=== PATIENT | male | born 1940 | race Caucasian/White ===

== ENCOUNTER → 2017-02-28 | Outpatient (CLI) | payer MEDICARE, OTHER ==
[~2017-02-28] MED LIST: 0.9 % SODIUM CHLORIDE 10 ML VIAL ONE; IOHEXOL 300 MG/ML 50 ML VIAL. ONE; LIDOCAINE 1% PF 30 ML VIAL. ONE
== END | disposition home or self-care (01) ==
LOC: SURG 08:28
PROVIDERS: ATTEND Anesthesiology Pain Medicine
DX: M54.2 Cervicalgia (principal); M19.90 Unspecified osteoarthritis, unspecified site
CPT/HCPCS: 99214; J2001; Q9967

== ENCOUNTER → 2018-03-07 | Outpatient (CLI) | payer MEDICARE, OTHER ==
[2017-07-18 08:57] VITALS: BP 129/63
--- NOTE | 2018-03-07 12:06 | RAD ---
EXAM: Left shoulder, 3 views. HISTORY: Pain. COMPARISON: None. FINDINGS: 3 views of the left shoulder obtained. There is no fracture, dislocation or subluxation. There is calcification along the superior lateral humeral head at the rotator cuff insertion likely due to calcific tendinitis. There is acromioclavicular spurring. IMPRESSION: 1. No acute osseous finding. 2. Mild left acromioclavicular os arthritis. 3. Calcifications along the rotator cuff insertion suggesting calcific tendinitis. Electronically signed by: Olivia Montenegro MD (03/07/2018 12:02 PM) [place] [id number]
== END | disposition home or self-care (01) ==
LOC: RAD 10:08
PROVIDERS: ATTEND Orthopaedic Surgery Sports Medicine
DX: M19.012 Primary osteoarthritis, left shoulder (principal)
CPT/HCPCS: 73030

== ENCOUNTER 2019-07-31 11:17 | Emergency (ER) | payer MEDICARE, OTHER ==
[~2019-07-31] VITALS: Ht 172.7 cm; Wt 96.6 kg
--- NOTE | 2019-07-31 11:44 | PHYS DOC ---
Adult General Chief Complaint Chief Complaint: WEAKNESS/GENERALIZED HPI HPI Patient is a 79-year-old male who reports a history of taking metoprolol for a fast heart rate and he presents today secondary to dizziness. Patient states he was not feeling well last night with similar symptoms and then this morning approximately 1 hour prior to arrival he became extremely dizzy and had to lie on the floor. He denies chest pain or shortness of breath. Patient has not been sick recently otherwise. Review of Systems Review of Systems All other systems were reviewed and found to be within normal limits, except as documented in this note. Allergies Allergies Allergies Coded Allergies Type Severity Reaction Last Updated Verified ciprofloxacin Allergy Intermediate Unknown 07/17/17 Yes levofloxacin Allergy Intermediate Unknown 07/17/17 Yes morphine Allergy Intermediate Palpitations 07/17/17 Yes Physical Exam Physical Exam Constitutional: Well developed, well nourished, no acute distress, non-toxic appearance. [] HENT: Normocephalic, atraumatic, bilateral external ears normal, oropharynx moist, no oral exudates, nose normal. [] Eyes: PERRLA, EOMI, conjunctiva normal, no discharge. [] Neck: Normal range of motion, no tenderness, supple, no stridor. [] Cardiovascular: Regular rhythm, bradycardic Lungs & Thorax: Bilateral breath sounds clear to auscultation [] Abdomen: Bowel sounds normal, soft, no tenderness, no masses, no pulsatile masses. [] Skin: Warm, dry, no erythema, no rash. [] Back: No tenderness, no CVA tenderness. [] Extremities: No tenderness, no cyanosis, no clubbing, ROM intact, no edema. [] Neurologic: Alert and oriented X 3, normal motor function, normal sensory function, no focal deficits noted. [] Psychologic: Affect normal, judgement normal, mood normal. [] EKG EKG EKG shows a complete heart block with a ventricular rate of 38. [] Radiology/Procedures Radiology/Procedures [] Course & Med Decision Making Course & Med Decision Making Pertinent Labs and Imaging studies reviewed. (See chart for details) 1142: Patient's EKG was performed and showed third-degree heart block. Cardiology was consulted and they agreed the patient is in a complete heart block. Will transfer to [facility] for likely pacemaker placement. Labs have been drawn and are currently being performed at this time. Patient is stable, blood pressure is stable, oxygenation is stable. Dragon Disclaimer Dragon Disclaimer This electronic medical record was generated, in whole or in part, using a voice recognition dictation system. Departure Departure: Impression: Primary Impression: Third degree heart block Disposition: XFER [facility] (Accepted by Dr. Samayoa) Condition: GUARDED Referrals: EVAN DUBOIS MD (PCP) DAY SHORT DO Jul 31, 2019 11:44
[2019-07-31] MEDS ORDERED: IV NORMAL SALINE 500ML 500 ML IV ONE (11:45)
[2019-07-31 11:46] LABS: BASO # 0.1 x10^3/uL (0.0-0.2); BASO % 0 % (0-3); EOS % 0 % (0-3); HEMATOCRIT 42.3 % (39.0-53.0); HEMOGLOBIN 14.3 g/dL (13.0-17.5); LYMPH # 4.1 x10^3/uL (1.0-4.8); LYMPH % 21 % (24-48); MEAN CORPUSCULAR HEMOGLOBIN 33 pg (25-35); MEAN CORPUSCULAR HGB CONC 34 g/dL (31-37); MEAN CORPUSCULAR VOLUME 98 fL (79-100); MONO # 1.6 x10^3/uL (0.0-1.1); MONO % 8 % (0-9); NEUT # 13.7 x10^3uL (1.8-7.7); NEUT % 70 % (31-73); PLATELET COUNT 311 x10^3/uL (140-400); RED BLOOD COUNT 4.33 x10^6/uL (4.30-5.70); RED CELL DISTRIBUTION WIDTH 12.7 % (11.5-14.5); WHITE BLOOD COUNT 19.5 x10^3/uL (4.0-11.0)
[2019-07-31 11:57] LABS: CALCIUM 8.5 mg/dL (8.5-10.1); GFR 71.9; POTASSIUM 3.4 mmol/L (3.5-5.1)
--- NOTE | 2019-07-31 11:57 | RAD ---
Examination: CHEST AP ONLY History: Dizzy Comparison: 02/27/2012 portable chest x-ray exam. Findings: AP portable upright frontal view of the chest was obtained. The cardiomediastinal silhouette is normal. Lungs are clear. There is no pneumothorax. No pleural effusion is appreciated. No acute bone abnormality. IMPRESSION: No acute cardiopulmonary process. Electronically signed by: Meño Ramirez MD (07/31/2019 11:54 AM) [id number]
[2019-07-31 12:09] VITALS: BP 112/48
[2019-07-31 12:13] LABS: MAGNESIUM 1.8 mg/dL (1.8-2.4)
[2019-07-31 12:17] LABS: % BANDS 1 % (0-9); % LYMPHS 24 % (24-48); % MONOS 4 % (0-10); % SEGS 71 % (35-66); PLT ESTIMATE ADEQUATE (ADEQUATE); TOXIC GRANULATION SLIGHT
--- NOTE | 2019-07-31 19:59 | EKG ---
[address] [address] Test Date: 2019-07-31 Test Time: 11:26:37 Pat Name: ZARINA OLIVARES Department: Room: Gender: M Burrer Machine: : 1940 Requested By: DAY SHORT Order Number: [id number] Reading MD: Measurements Intervals [place] Rate: 38 P: [place]: QRS: -68 QRSD: 132 T: 6 QT: 504 QTc: 403 Interpretive Statements IRREGULAR RHYTHM, NO P-WAVE FOUND ABNORMAL LEFT AXIS DEVIATION LEFT ANTERIOR FASCICULAR BLOCK RIGHT BUNDLE BRANCH BLOCK BIFASCICULAR BLOCK ABNORMAL ECG RI6.01 No previous ECG available for comparison
== END 2019-07-31 12:10 | disposition short-term general hospital (02) ==
LOC: ER 11:17
DX: I44.2 Atrioventricular block, complete (principal); Z88.1 Allergy status to other antibiotic agents; Z88.5 Allergy status to narcotic agent
CPT/HCPCS: 36415; 71045; 80048; 82553; 83735; 83874; 83880; 84484; 85007; 85025; 85610; 85730; 93005; 99285

== ENCOUNTER 2019-10-20 10:30 | Inpatient (IN) | payer MEDICARE, OTHER ==
[~2019-10-20] VITALS: Ht 172.7 cm; Wt 95.0 kg
--- NOTE | 2019-10-20 11:12 | PHYS DOC ---
Past History Past Medical History: Hypertension Past Surgical History: Pacemaker, Other Additional Past Surgical Histo: prostate sx, back fusion sx Alcohol Use: None General Adult EDM: Chief Complaint: SHORTNESS OF BREATH HPI: HPI: Patient is a 79-year-old male who presented to ER today for evaluation of trouble breathing over a month. Patient sustained a third-degree AV block, had pacemaker implanted in July of this year. Patient stated that since he had not been normal. Patient has been having trouble breathing off and on since, become more severe last month. Patient was evaluated and was diagnosed with pneumonia. Patient was on IV Rocephin for 10 days. Patient was tested for COVID-19 3 times and it all came back negative. Patient denies any cough, no fever, no chest pain. Patient denies any headache. Patient said he cannot take a full deep breath, having shortness of air with exertion. Review of Systems: Review of Systems: Constitutional: Denies fever or chills Eyes: Denies change in visual acuity HENT: Denies nasal congestion or sore throat Respiratory: Denies cough, positive for shortness of breath Cardiovascular: Denies chest pain or edema GI: Denies abdominal pain, nausea, vomiting, bloody stools or diarrhea : Denies dysuria Musculoskeletal: Denies back pain or joint pain Integument: Denies rash Neurologic: Denies headache, focal weakness or sensory changes Endocrine: Denies polyuria or polydipsia Lymphatic: Denies swollen glands Psychiatric: Denies depression or anxiety Heart Score: Risk Factors: Risk Factors: DM, Current or recent (<one month) smoker, HTN, HLP, family history of CAD, obesity. Risk Scores: Score 0 - 3: 2.5% MACE over next 6 weeks - Discharge Home Score 4 - 6: 20.3% MACE over next 6 weeks - Admit for Clinical Observation Score 7 - 10: 72.7% MACE over next 6 weeks - Early Invasive Strategies Allergies: Allergies: Allergies Coded Allergies Type Severity Reaction Last Updated Verified ciprofloxacin Allergy Intermediate Unknown 07/17/17 Yes levofloxacin Allergy Intermediate Unknown 07/17/17 Yes morphine Allergy Intermediate Palpitations 07/17/17 Yes Physical Exam: PE: Constitutional: Well developed, well nourished, no acute distress, non-toxic appearance. [] HENT: Normocephalic, atraumatic, bilateral external ears normal, oropharynx moist, no oral exudates, nose normal. [] Eyes: PERRLA, EOMI, conjunctiva normal, no discharge. [] Neck: Normal range of motion, no tenderness, supple, no stridor. [] Cardiovascular:Heart rate regular rhythm, no murmur [] Lungs & Thorax: Bilateral breath sounds with diffuse crackles to auscultation [] Abdomen: Bowel sounds normal, soft, no tenderness, no masses, no pulsatile masses. [] Skin: Warm, dry, no erythema, no rash. [] Back: No tenderness, no CVA tenderness. [] Extremities: No tenderness, no cyanosis, no clubbing, ROM intact, no edema. [] Neurologic: Alert and oriented X 3, normal motor function, normal sensory function, no focal deficits noted. [] Psychologic: Affect normal, judgement normal, mood normal. [] Current Patient Data: Labs: Laboratory Tests Test 10/20/19 10:51 White Blood Count 11.9 x10^3/uL Red Blood Count 3.99 x10^6/uL Hemoglobin 12.9 g/dL Hematocrit 37.9 % Mean Corpuscular Volume 95 fL Mean Corpuscular Hemoglobin 32 pg Mean Corpuscular Hemoglobin Concent 34 g/dL Red Cell Distribution Width 13.2 % Platelet Count 285 x10^3/uL Neutrophils (%) (Auto) 84 % Lymphocytes (%) (Auto) 10 % Monocytes (%) (Auto) 4 % Eosinophils (%) (Auto) 2 % Basophils (%) (Auto) 0 % Neutrophils # (Auto) 10.0 x10^3uL Lymphocytes # (Auto) 1.2 x10^3/uL Monocytes # (Auto) 0.5 x10^3/uL Eosinophils # (Auto) 0.2 x10^3/uL Basophils # (Auto) 0.0 x10^3/uL Prothrombin Time 9.8 SEC Prothromb Time International Ratio 0.9 Activated Partial Thromboplast Time 27 SEC Sodium Level 138 mmol/L Potassium Level 3.6 mmol/L Chloride Level 103 mmol/L Carbon Dioxide Level 23 mmol/L Anion Gap 12 Blood Urea Nitrogen 18 mg/dL Creatinine 1.0 mg/dL Estimated GFR (Cockcroft-Gault) 71.9 BUN/Creatinine Ratio 18 Glucose Level 110 mg/dL Lactic Acid Level 2.4 mmol/L Calcium Level 8.6 mg/dL Magnesium Level 1.6 mg/dL Total Bilirubin 0.5 mg/dL Aspartate Amino Transf (AST/SGOT) 23 U/L Alanine Aminotransferase (ALT/SGPT) 19 U/L Alkaline Phosphatase 75 U/L Troponin I Quantitative < 0.017 ng/mL WI-Uvb-W-Type Natriuretic Peptide 821 pg/mL Total Protein 7.0 g/dL Albumin 3.0 g/dL Albumin/Globulin Ratio 0.8 Current Medications Medications (Trade) Dose Ordered Sig/Patty Route PRN Reason Start Time Stop Time Status Last Admin Dose Admin Sodium Chloride 1,000 ml @ 1,000 mls/hr 1X ONCE IV 10/20/19 12:00 10/20/19 12:59 Vancomycin HCl 1 gm/Sodium Chloride 250 ml @ 250 mls/hr 1X ONCE IV 10/20/19 12:00 10/20/19 11:57 DC Vancomycin HCl 2 gm/Sodium Chloride 500 ml @ 250 mls/hr 1X ONCE IV 10/20/19 12:00 10/20/19 13:59 Sodium Chloride 500 ml @ As Directed STK-MED ONCE .ROUTE 10/20/19 11:59 10/20/19 11:59 DC Vancomycin HCl (Vancomycin) 1 gm STK-MED ONCE .ROUTE 10/20/19 11:59 10/20/19 11:59 DC Sodium Chloride 500 ml @ As Directed STK-MED ONCE .ROUTE 10/20/19 11:59 10/20/19 11:59 DC Vancomycin HCl (Vancomycin) 1 gm STK-MED ONCE .ROUTE 10/20/19 11:59 10/20/19 12:00 DC Sodium Chloride 500 ml @ As Directed STK-MED ONCE .ROUTE 10/20/19 12:11 10/20/19 12:11 DC Vancomycin HCl (Vancomycin) 1 gm STK-MED ONCE .ROUTE 10/20/19 12:11 10/20/19 12:12 DC Magnesium Sulfate 50 ml @ 25 mls/hr 1X ONCE IV 10/20/19 12:30 10/20/19 14:29 EKG: EKG: EKG was done at 1056, heart rate of 87 bpm, sinus rhythm, left bundle branch block, no ST segment elevation. Radiology/Procedures: Radiology/Procedures: [][address] [address] IMAGING REPORT Signed PATIENT: ZARINA OLIVARES: [id number] : 1940 LOCATION: ER AGE: 79 SEX: M EXAM STATUS: REG ER ORD. PHYSICIAN: EVAN CANALES DO REASON: soa, cough PROCEDURE: CHEST AP ONLY CHEST AP ONLY History: Reason: soa, cough / Spl. Instructions: / History: Comparison: July 31, 2019 Findings: Diffuse interstitial and alveolar opacities. Possible small left pleural effusion. Left-sided pacemaker and mildly placed. No pneumothorax. Normal heart size. Impression: 1. Diffuse interstitial and alveolar opacities, may represent pulmonary edema or atypical infection such as viral pneumonia. Electronically signed by: Giovanny Kendrick DO (10/20/2019 11:11 AM) [id number] DICTATED AND SIGNED BY: GIOVANNY KENDRICK DO DATE: 10/20/19 1111 CC: EVAN DUBOIS MD; EVAN CANALES DO ~ [address] [address] IMAGING REPORT Signed PATIENT: ZARINA OLIVARESTIMA: [id number] : 1940 LOCATION: ER AGE: 79 SEX: M EXAM STATUS: REG ER ORD. PHYSICIAN: EVAN CANALES DO REASON: shortness of air for a month, had pacemaker implanted in 08/07 PROCEDURE: CT ANGIOGRAPHY CHEST CTA OF THE CHEST WITH AND WITHOUT CONTRAST Clinical indications: Shortness of air for months. Cough. Abnormal chest x-ray Has had recent pacemaker replacement. Technique: Noncontrast axial localizer was performed. After IV infusion of 100 cc of Isovue-370, helical CT scanning of the chest was performed using the CT pulmonary embolism protocol. A coronal MIP reconstruction was generated. PQRS compliance Statement One or more of the following individualized dose reduction techniques were utilized for this study: 1. Automated exposure control 2. Adjustment of the mA and/or kV according to patient size 3. Use of iterative reconstruction technique Comparison: Chest CT dated January 14, 2010. Findings: No pulmonary embolism is evident. No focal aneurysmal dilatation or dissection of the thoracic aorta is seen. No enlarged thoracic lymphadenopathy is evident. Heart size is at the upper limits of normal. Mild calcified atheromatous disease of the coronary arteries is seen. No pericardial effusion is seen. Minimal bilateral pleural effusions are seen. 5 lobe groundglass and consolidative lung infiltrates are seen some with air bronchograms. There is interstitial thickening as well. Some infiltrates are perihilar in location and other infiltrates are peripheral in location. No pneumothorax is seen. The proximal bronchial tree is patent. No adrenal mass is evident. Incidental note is made of a right renal cyst. No further workup is needed. This is an incidental finding. No adrenal mass is evident. There is new finding of sclerosis involving the L1 vertebral body. IMPRESSION: No pulmonary embolism. Bilateral groundglass and consolidative lung infiltrates involving all 5 lobes. There may be due to pulmonary edema or infection including the possibility of atypical infection. Minimal bilateral pleural effusions are seen. Mild calcified atheromatous disease of the coronary arteries. Heart size is at the upper limits of normal. New finding of sclerosis of L1 vertebral body. Osteoblastic metastatic disease is certainly possible if there is a history of malignancy such as prostate cancer. Electronically signed by: Kathy Desouza MD (10/20/2019 2:04 PM) [id number] DICTATED AND SIGNED BY: KATHY DESOUZA MD DATE: 10/20/19 1404 CC: EVAN DUBOIS MD; EVAN CANALES DO ~ Course & Med Decision Making: Course & Med Decision Making Pertinent Labs and Imaging studies reviewed. (See chart for details) Patient is an 79-year-old male who presented to ER today for evaluation of trouble breathing off and on for a month, he was treated for pneumonia with Rocephin for 10 days but did not get any better. His CT scan of the chest today did not show any blood clot but it does reveal that he has groundglass appearance in all his lung forbes. Patient is suspected to have COVID 19 infection. He will be admitted to hospital, discussed with hospitalist on-call Dr. DYER. COVID-19 CRITERIA: The patient was evaluated during the global COVID-19 pandemic, and that diagnosis was suspected/considered upon their initial presentation. Their evaluation, treatment and testing was consistent with current guidelines for patients who present with complaints or symptoms that may be related to COVID-19. Dragon Disclaimer: Dragon Disclaimer: This electronic medical record was generated, in whole or in part, using a voice recognition dictation system. Departure Departure: Impression: Primary Impression: Suspected 2019 novel coronavirus infection Additional Impressions: Pneumonia Hypomagnesemia Disposition: ADMITTED INPATIENT Admitting Physician: Guy Dyer Condition: STABLE Referrals: EVAN DUBOIS MD (PCP) EVAN CANALES DO Oct 20, 2019 11:12
[2019-10-20 11:14] LABS: BASO % 0 % (0-3); EOS # 0.2 x10^3/uL (0.0-0.7); EOS % 2 % (0-3); HEMATOCRIT 37.9 % (39.0-53.0); HEMOGLOBIN 12.9 g/dL (13.0-17.5); LYMPH # 1.2 x10^3/uL (1.0-4.8); LYMPH % 10 % (24-48); MEAN CORPUSCULAR HEMOGLOBIN 32 pg (25-35); MEAN CORPUSCULAR HGB CONC 34 g/dL (31-37); MEAN CORPUSCULAR VOLUME 95 fL (79-100); MONO # 0.5 x10^3/uL (0.0-1.1); MONO % 4 % (0-9); NEUT % 84 % (31-73); PLATELET COUNT 285 x10^3/uL (140-400); RED BLOOD COUNT 3.99 x10^6/uL (4.30-5.70); RED CELL DISTRIBUTION WIDTH 13.2 % (11.5-14.5); WHITE BLOOD COUNT 11.9 x10^3/uL (4.0-11.0)
[2019-10-20 11:35] LABS: MAGNESIUM 1.6 mg/dL (1.8-2.4)
[2019-10-20] MEDS ORDERED: VANCOMYCIN 1 GM VIAL. ONE ×3 (11:59→12:11)
[2019-10-20] MEDS ORDERED: IV NORMAL SALINE 500ML 500 ML ONE ×3 (11:59→12:11)
[2019-10-20] MEDS ORDERED: IV NORMAL SALINE 1,000ML 1,000 ML IV ONE (12:00)
[2019-10-20] MEDS ORDERED: VANCOMYCIN 1 GM in IV NORMAL SALINE 250ML 250 ML IV ONE (12:00)
[2019-10-20] MEDS ORDERED: VANCOMYCIN 2 GM in IV NORMAL SALINE 500ML 500 ML IV ONE (12:00)
[2019-10-20] MEDS ORDERED: MAGNESIUM SULFATE 2GM 50 ML IV ONE (12:30)
[2019-10-20 12:32] LABS: CALCIUM 8.6 mg/dL (8.5-10.1); GFR 71.9; POTASSIUM 3.6 mmol/L (3.5-5.1)
[2019-10-20 12:38] LABS: ALBUMIN/GLOBULIN RATIO 0.8 (1.0-1.7); TOTAL BILIRUBIN 0.5 mg/dL (0.2-1.0)
[2019-10-20] MEDS ORDERED: CONTRAST GIVEN. MC PRN (13:00)
[2019-10-20] MEDS ORDERED: IOHEXOL 350 MG/ML 100 ML VIAL. IV ONE (13:00)
--- NOTE | 2019-10-20 14:07 | RAD ---
CTA OF THE CHEST WITH AND WITHOUT CONTRAST Clinical indications: Shortness of air for months. Cough. Abnormal chest x-ray Has had recent pacemaker replacement. Technique: Noncontrast axial localizer was performed. After IV infusion of 100 cc of Isovue-370, helical CT scanning of the chest was performed using the CT pulmonary embolism protocol. A coronal MIP reconstruction was generated. PQRS compliance Statement One or more of the following individualized dose reduction techniques were utilized for this study: 1. Automated exposure control 2. Adjustment of the mA and/or kV according to patient size 3. Use of iterative reconstruction technique Comparison: Chest CT dated January 14, 2010. Findings: No pulmonary embolism is evident. No focal aneurysmal dilatation or dissection of the thoracic aorta is seen. No enlarged thoracic lymphadenopathy is evident. Heart size is at the upper limits of normal. Mild calcified atheromatous disease of the coronary arteries is seen. No pericardial effusion is seen. Minimal bilateral pleural effusions are seen. 5 lobe groundglass and consolidative lung infiltrates are seen some with air bronchograms. There is interstitial thickening as well. Some infiltrates are perihilar in location and other infiltrates are peripheral in location. No pneumothorax is seen. The proximal bronchial tree is patent. No adrenal mass is evident. Incidental note is made of a right renal cyst. No further workup is needed. This is an incidental finding. No adrenal mass is evident. There is new finding of sclerosis involving the L1 vertebral body. IMPRESSION: No pulmonary embolism. Bilateral groundglass and consolidative lung infiltrates involving all 5 lobes. There may be due to pulmonary edema or infection including the possibility of atypical infection. Minimal bilateral pleural effusions are seen. Mild calcified atheromatous disease of the coronary arteries. Heart size is at the upper limits of normal. New finding of sclerosis of L1 vertebral body. Osteoblastic metastatic disease is certainly possible if there is a history of malignancy such as prostate cancer. Electronically signed by: Dmitry Desouza MD (10/20/2019 2:04 PM) [id number]
--- NOTE | 2019-10-20 15:31 | NUR ---
The patient, ZARINA OLIVARES, 79 y/o, M admitted by MARCOS DYER MD, was given written information regarding hospital policies, unit procedures and contact persons. Valuables were checked and LEFT WITH PATIENT. PT REPORTS HIS WILL BRING UP CLOTHES FOR HIM TONIGHT. PT ALSO STATES HE HAS TROUBLE SLEEPING AND WOULD LIKE SOMETHING FOR SLEEP. PT DENIES ANY PAIN AT THIS TIME. PT APPEARS TO BE SOB AT REST WITH O2 SATURATION OF 95% ON 2 L. WILL CONTINUE TO ASSESS NEEDED.
[2019-10-20 15:36] LABS: BGAS PH 7.45 (7.35-7.46)
[2019-10-20 16:35] VITALS: BP 115/65
[2019-10-20 17:00] VITALS: BP 114/65
--- NOTE | 2019-10-20 17:00 | NUR ---
DR. DYER NOTIFIED OF CRITICAL VALUE OF 2.[address] DYER STATES "DO NOT DO A REFLEX DRAW ON THE PATIENT. HE DOES NOT NEED IT. IT WILL NOT CHANGE THE PLAN OF TREATMENT."
--- NOTE | 2019-10-20 17:06 | HP ---
ADMIT DATE: 10/20/2019 ATTENDING PHYSICIAN: Dr. Dyer. CHIEF COMPLAINT: Shortness of breath. HISTORY OF PRESENT ILLNESS: The patient is a pleasant 79-year-old gentleman admitted through the ED with increasing shortness of breath for the last couple of days, he has been sick for over a month. He had a pacemaker placed for third-degree AV block in July of this year. Earlier 2 weeks ago, he was diagnosed with community-acquired pneumonia. He was evaluated, treated with 10 days of intravenous Rocephin. He was here for a week, getting outpatient IV therapy. He has been previously tested for COVID-19 coronavirus 3 times, all were negative. No recent travel. He had a CT of the chest today, which showed ground glass appearance and opacities in all 5 lobes. There is no pulmonary embolus. He had atypical patchy pneumonitis consistent with atypical pneumonia. He was admitted for further treatment and evaluation. PAST MEDICAL HISTORY: Significant for permanent pacemaker, prostatism and chronic back pain and back surgeries. ALLERGIES: CIPROFLOXACIN, LEVOFLOXACIN and MORPHINE, exact cause is unclear. CURRENT MEDICATIONS: He is not on any prescription meds for blood pressure, diabetes. 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 FAMILY HISTORY: Noncontributory. REVIEW OF SYSTEMS: Significant for 1-month history of respiratory symptoms, worsening shortness of breath and dyspnea with minimal exertion, low-grade fevers, nonproductive cough, some headaches, generally not feeling well. All other systems reviewed and turned to be negative. PHYSICAL EXAMINATION: GENERAL: When I saw him, this is a pleasant, alert gentleman. INITIAL VITAL SIGNS: Showed a blood pressure 96/53, pulse is 86 and regular, temperature 98.1, oxygen saturation 88% on room air. Supplemental oxygen was added. HEENT: Head is without trauma. Pupils are reactive. Sclerae nonicteric. Oropharynx clear. NECK: Supple, no bruits. LUNGS: Coarse rhonchi bilaterally. CARDIOVASCULAR: Showed distant heart tones. No gallops. Peripheral pulses are palpable and full. ABDOMEN: Obese, protuberant. No organomegaly. Bowel sounds are hypoactive. EXTREMITIES: Showed no cyanosis or edema. NEUROLOGIC: Focally intact. Speech fluent. No focal deficits. SKIN: Warm and dry. PERTINENT LABORATORY STUDIES: The hemoglobin is 12.9 g/dL with white count of 11,900. Arterial blood gases on oxygen showed a pH of 7.45, pCO2 of 28, pO2 of 114 with oxygen saturation 99% on 2 liters of nasal cannula. Chemistry panel unremarkable, normal BUN and creatinine, electrolytes. Nonfasting blood sugar 110. Lactic acid 2.4. Cardiac enzymes negative for myocardial necrosis. Liver panel was unremarkable. CT chest as noted. ASSESSMENT: 1. An 79-year-old gentleman with atypical pneumonitis involving 5 lobes. He has diffuse ground-glass appearance consistent with atypical viral pneumonia. 2. ____ recent 10-day course of Rocephin for bacterial pneumonia. 3. Permanent pacemaker due to heart block. 4. Degenerative arthritis. 5. Chronic low back pain. PLAN: 1. Admit to the COVID-19 precautions unit. 2. Recheck a COVID-19 coronavirus swab, this will be his fourth test. 3. In the meantime, we will start empiric hydroxychloroquine and Zithromax. 4. Diet as tolerated. MARCOS DYER MD DR: ARCADIO/hansel JOB#: [id number] / [id number] EVAN Anaya MD
[2019-10-20] MEDS ORDERED: DOXY-96 PO (17:21)
[2019-10-20] MEDS ORDERED: DOCU-109 PO (17:21)
[2019-10-20] MEDS ORDERED: METO-239 PO (17:23)
[2019-10-20] MEDS: AZITHROMYCIN 500 MG in IV NORMAL SALINE 250ML 250 ML IV SCH (17:39)
[2019-10-20] MEDS: HYDROXYCHLOROQUINE 200 MG TABLET PO SCH ×2 (17:39→21:53)
[2019-10-20 21:50] VITALS: BP 95/67
[2019-10-20] MEDS: DOXYCYCLINE HYCLATE 100 MG TABLET PO SCH (21:52)
[2019-10-20] MEDS: TEMAZEPAM 15 MG CAPSULE PO PRN (21:52)
[2019-10-20] MEDS: DOCUSATE SODIUM 100 MG CAPSULE PO SCH (21:52)
[2019-10-20] MEDS: LACTOBACILLUS RHAMNOSUS GG 1 CAPSULE. PO SCH (21:52)
[2019-10-21] MEDS: DOCUSATE SODIUM 100 MG CAPSULE PO SCH ×2 (08:03→21:57)
[2019-10-21] MEDS: DOXYCYCLINE HYCLATE 100 MG TABLET PO SCH ×2 (08:03→21:57)
[2019-10-21] MEDS: LACTOBACILLUS RHAMNOSUS GG 1 CAPSULE. PO SCH ×2 (08:03→21:57)
[2019-10-21 08:23] VITALS: BP 124/64
[2019-10-21] MEDS: METOPROLOL SUCC 24HR ER 25 MG TAB.ER.24H. PO SCH (08:24)
--- NOTE | 2019-10-21 08:49 | EKG ---
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
[2019-10-21] MEDS ORDERED: HYDROXYCHLOROQUINE 200 MG TABLET PO SCH (09:00)
[2019-10-21] MEDS ORDERED: FUROSEMIDE 40 MG/4 ML VIAL IVP ONE (10:45)
[2019-10-21 10:56] VITALS: BP 110/58
--- NOTE | 2019-10-21 11:22 | NUR ---
IP: patient suspicious for COVID-19 requires contact and airborne precautions.
--- NOTE | 2019-10-21 12:35 | PN ---
DATE: 10/21/2019 ATTENDING PHYSICIAN: Dr. Dyer. CHIEF COMPLAINT: Shortness of breath. SUBJECTIVE: The patient is doing better. He is less dyspneic. His oxygen saturation is adequate on room air. He had no other dyspnea. No cough or congestion. OBJECTIVE FINDINGS: GENERAL: His COVID-19 swab most recently came back negative for coronavirus. VITAL SIGNS: His blood pressure is 124/64 mmHg, pulse 74 and regular, temperature 97.8 degrees Fahrenheit. Room air saturation 95%. HEENT: Head is without trauma. Pupils are reactive. Sclerae nonicteric. Oropharynx is clear. NECK: Supple, no bruits. LUNGS: Fairly good breath sounds, minimal rhonchi. CARDIOVASCULAR: Showed distant heart tones. No gallops. Peripheral pulses are palpable and full. ABDOMEN: Soft, scaphoid, nontender, no organomegaly. Bowel sounds are normoactive. EXTREMITIES: Show trace edema. NEUROLOGIC: Focally intact. ASSESSMENT: 1. This 79-year-old gentleman has had upper respiratory tract infection with atypical pneumonia. His COVID-19 coronavirus swab was reported as negative. 2. Dyspnea, resolved. 3. Hypoxemia, resolved. 4. Essential hypertension. 5. Permanent pacemaker. 6. Degenerative arthritis. 7. Heart failure ruled out as he had a normal echocardiogram in July of this year. PLAN: 1. Continue Zithromax as ordered. 2. We can stop his Plaquenil. 3. Lasix empirically 80 mg IV. 4. Followup chest x-ray in the morning to see if the infiltrates were actually fluent and not infection. 5. Continue home meds. MARCOS DYER MD DR: ARCADIO/hansel JOB#: [id number] / [id number]
[2019-10-21 15:29] VITALS: BP 129/59
[2019-10-21] MEDS ORDERED: VITS A & D/LANOLIN TOPICAL OINTMENT 42GM TUBE. TP PRN (17:00)
[2019-10-21] MEDS: AZITHROMYCIN 500 MG in IV NORMAL SALINE 250ML 250 ML IV SCH (17:13)
--- NOTE | 2019-10-21 17:30 | NUR ---
NSG NOTE; "I DON'T FEEL GOOD" THIS AM, PT WAS MORE ALERT AND STATED WAS FEELING BETTER AT DINNER TIME, PT STATED THAT HE "DOESN'T FEEL WELL". UPON FURTHER QUESTIONING, HE IS FEELING TIRED AND WEAK. STATES HE GETS TIRED AND WEAK JUST WALKING TO THE WINDOW AND STANDING THERE FOR A FEW MINUTES. TEMP 98.9- PT IS FLUSHED BUT ASKS FOR THE ROOM TO STAY WARMER. NO COUGH OR SOA NOTED. O2 SAT 95% ON RA. BP 128/78.
[2019-10-21 19:37] VITALS: BP 100/64
[2019-10-21] MEDS: ACETAMINOPHEN 500 MG TABLET PO PRN (20:28)
[2019-10-21] MEDS ORDERED: NYSTATIN TOPICAL POWDER 15GM BOTTLE. TP SCH (21:00)
[2019-10-21 21:54] VITALS: BP 92/57
[2019-10-21] MEDS: TEMAZEPAM 15 MG CAPSULE PO PRN (21:57)
--- NOTE | 2019-10-21 22:07 | NUR ---
PT requested HS meds at 2200, same as last night. PT requested half dosing for sleeping med this pm, stating that it "made me feel groggy all day". PT O2 saturations at 90-91% at time of medication administration. O2 at 2L applied with humidifier attached for his "dry nose".
[2019-10-22 05:59] VITALS: BP 108/67
--- NOTE | 2019-10-22 05:59 | NUR ---
PT removed O2 this am. At vital signs, O2 saturation at 95% supine.
[2019-10-22] MEDS: METOPROLOL SUCC 24HR ER 25 MG TAB.ER.24H. PO SCH (08:08)
[2019-10-22] MEDS: DOXYCYCLINE HYCLATE 100 MG TABLET PO SCH ×2 (08:08→22:20)
[2019-10-22] MEDS: DOCUSATE SODIUM 100 MG CAPSULE PO SCH ×2 (08:08→22:21)
[2019-10-22] MEDS: ACETAMINOPHEN 500 MG TABLET PO PRN (08:09)
[2019-10-22] MEDS: LACTOBACILLUS RHAMNOSUS GG 1 CAPSULE. PO SCH ×2 (08:09→22:20)
[2019-10-22 08:35] LABS: BASO % 0 % (0-3); EOS # 0.5 x10^3/uL (0.0-0.7); EOS % 6 % (0-3); HEMATOCRIT 36.5 % (39.0-53.0); HEMOGLOBIN 12.5 g/dL (13.0-17.5); LYMPH # 2.2 x10^3/uL (1.0-4.8); LYMPH % 26 % (24-48); MEAN CORPUSCULAR HEMOGLOBIN 33 pg (25-35); MEAN CORPUSCULAR HGB CONC 34 g/dL (31-37); MEAN CORPUSCULAR VOLUME 95 fL (79-100); MONO # 1.2 x10^3/uL (0.0-1.1); MONO % 15 % (0-9); NEUT # 4.6 x10^3uL (1.8-7.7); NEUT % 54 % (31-73); PLATELET COUNT 301 x10^3/uL (140-400); RED BLOOD COUNT 3.84 x10^6/uL (4.30-5.70); RED CELL DISTRIBUTION WIDTH 13.5 % (11.5-14.5); WHITE BLOOD COUNT 8.6 x10^3/uL (4.0-11.0)
[2019-10-22 08:45] LABS: ALBUMIN 2.8 g/dL (3.4-5.0); ALBUMIN/GLOBULIN RATIO 0.6 (1.0-1.7); CALCIUM 8.7 mg/dL (8.5-10.1); GFR 71.9; TOTAL BILIRUBIN 0.5 mg/dL (0.2-1.0); TOTAL PROTEIN 7.3 g/dL (6.4-8.2)
--- NOTE | 2019-10-22 10:26 | RAD ---
CHEST AP ONLY History: Reason: PNEUMONIA / Spl. Instructions: / History: Comparison: October 20, 2019 Findings: Multifocal pulmonary opacities, unchanged. No definite pleural effusion. Unchanged heart size. No pneumothorax. Stable left-sided pacemaker. Impression: 1. Multifocal pulmonary opacities, unchanged. Electronically signed by: Giovanny Kendrick DO (10/22/2019 10:22 AM) [facility]
[2019-10-22 13:46] VITALS: BP 115/64
--- NOTE | 2019-10-22 15:33 | PN ---
DATE: 10/22/2019 SUBJECTIVE: The patient is an 79-year-old male patient who apparently was admitted on Sunday, 2 days ago with a complaint of shortness of breath, cough with scanty sputum. He denied any chest pain, denied any orthopnea or paroxysmal nocturnal dyspnea. 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 Had a CT scan of the chest, which basically showed that he has bilateral ground glass and consolidative lung infiltrates involving all 5 lobes. These may be due to pulmonary edema or infection including the possibility of atypical infection. Minimal bilateral pleural effusion are seen. He had another COVID test, which basically showed that it is negative. A repeat chest x-ray today showed again that the patient has multifocal pulmonary opacities unchanged. No definite pleural effusion, unchanged heart size, no pneumothorax and stable left sided pacemaker. I did speak with Dr. Guerra as I was wondering whether there is a possibility of bronchiolitis obliterans and organizing pneumonia and he recommended checking his C-reactive protein and if it is high to give him a trial of steroids. PHYSICAL EXAMINATION: GENERAL: When I saw him today, he looked well and was clearly in no apparent respiratory distress. No pallor, jaundice, cyanosis or thyromegaly. No jugular venous distention. No limb edema. VITAL SIGNS: His heart rate was 91, blood pressure 115/64, temperature was 97.7, respiratory rate 20, and oxygen saturation was 95% on 2 liters of oxygen. HEAD, EYES, EARS, NOSE AND THROAT: Showed normocephalic, atraumatic. NECK: Supple. HEART: Showed normal first and second heart sounds. No gallop, rub or murmur. CHEST: Showed central trachea, equal bilateral expansion, air entry, vesicular sounds with bilateral basal crepitation posteriorly. I could not appreciate any rhonchi. ABDOMEN: Distended, soft, nontender. No guarding or rigidity. No organomegaly. All hernial orifice intact. Bowel sounds normal. NEUROLOGIC: He was awake, alert, responding appropriately. All cranial nerves are intact. He moves extremities without difficulty, ambulates without assistance or assistive devices. His intake was 2470, no output was recorded. LABORATORY DATA: His lab work this morning showed a white cell count of 8600, hemoglobin 12.5, hematocrit 36, MCV 95, and platelet count of 301,000 with normal manual differential. His chemistry showed a serum sodium 137, potassium 4, chloride 102, bicarbonate 27, anion gap of 8, BUN 14, creatinine 1, estimated GFR was 72 mL per minute. His glucose was 98, calcium was 8.7. Total bilirubin, AST, ALT, alkaline phosphatase were normal. Total protein was 7.3, albumin was 2.8. His prothrombin time, INR and aPTT normal and again his COVID-19 by PCR not detected. His blood cultures so far showed no growth after 2 days. ASSESSMENT AND PLAN: Multifocal pneumonia despite treatment with IV antibiotic. The patient has been tested for COVID-19 four times and all were negative. The patient definitely has bilateral crepitation, but no rhonchi. Given the recent infection, the possibility of bronchiolitis obliterans and organizing pneumonia was entertained. As per Dr. Guerra's recommendation, I will check his CRP, and if it is high, we will start him on a course of steroids. MARYSOL FERNANDEZ MD DR: LENI/hansel JOB#: [id number] / [id number]
[2019-10-22] MEDS: AZITHROMYCIN 500 MG in IV NORMAL SALINE 250ML 250 ML IV SCH (17:00)
[2019-10-22 20:05] VITALS: BP 118/64
[2019-10-22] MEDS: methylPREDNISolone SOD SUCC PF 40 MG/ML VIAL. IV SCH (22:20)
[2019-10-22] MEDS: TEMAZEPAM 15 MG CAPSULE PO PRN (22:20)
[2019-10-22 22:25] VITALS: BP 140/67
[2019-10-23] MEDS: methylPREDNISolone SOD SUCC PF 40 MG/ML VIAL. IV SCH ×3 (06:20→21:05)
[2019-10-23] MEDS: LACTOBACILLUS RHAMNOSUS GG 1 CAPSULE. PO SCH ×2 (07:58→21:04)
[2019-10-23] MEDS: DOXYCYCLINE HYCLATE 100 MG TABLET PO SCH ×2 (07:58→21:04)
[2019-10-23] MEDS: DOCUSATE SODIUM 100 MG CAPSULE PO SCH ×2 (07:58→21:04)
[2019-10-23 07:59] VITALS: BP 128/68
[2019-10-23] MEDS: METOPROLOL SUCC 24HR ER 25 MG TAB.ER.24H. PO SCH (07:59)
[2019-10-23] MEDS: ACETAMINOPHEN 500 MG TABLET PO PRN (07:59)
[2019-10-23 10:31] VITALS: BP 120/63
[2019-10-23 14:54] VITALS: BP 120/55
[2019-10-23 16:47] LABS: CREATININE 1.1 mg/dL (0.7-1.3); GFR 64.4; MAGNESIUM 2.1 mg/dL (1.8-2.4)
--- NOTE | 2019-10-23 17:41 | PN ---
DATE: 10/23/2019 SUBJECTIVE: The patient is resting, slightly propped up in bed, no apparent distress. He is feeling much better. I did speak with Dr. Guerra yesterday regarding the possibility of bronchiolitis obliterans and organizing pneumonia and he recommended checking his C-reactive protein, if he decides to start him on steroids. In fact, his C-reactive protein yesterday was 133 mg/dL and I did start him on Solu-Medrol 60 mg IV every 8 hours. He has recurrent episodes of nonsustained ventricular tachycardia and therefore we will check his BMP and magnesium, and we have consulted the Cardiology and if he remains stable tomorrow, we can discharge him home on oral steroids and to make an appointment for him to be followed by Dr. Guerra at his office. PHYSICAL EXAMINATION: GENERAL: When I saw him this afternoon, he looked well and was clearly in no apparent respiratory distress. No pallor, jaundice, cyanosis or thyromegaly. No jugular venous distention. No limb edema. VITAL SIGNS: His heart rate was 76, blood pressure was 120/55, temperature was 97.8, respiratory rate 20, and oxygen saturation was 93%. HEAD, EYES, EARS, NOSE AND THROAT: Normocephalic, atraumatic. NECK: Supple. HEART: Showed normal first and second heart sounds. No gallop, rub or murmur. CHEST: Clear to auscultation. No crepitation or rhonchi. Does have bilateral crepitation posteriorly. I could not appreciate any rhonchi. ABDOMEN: Distended, soft, nontender. NEUROLOGIC: He is grossly intact. His intake was 1615, no output was recorded. LABORATORY DATA: As of yesterday showed a serum sodium 137, potassium 4, chloride 102, bicarbonate 27, anion gap of 8, BUN 14, creatinine 1, estimated GFR was 72 mL per minute, his glucose was 98, calcium was 8.7. Total bilirubin, AST, ALT, alkaline phosphatase were normal. His C-reactive protein was 133. Total protein was 7.3, albumin 2.8. His white cell count was 8600, hemoglobin 12.5, hematocrit 36.5, MCV 95, and platelet count 301,000 with normal manual differential. His COVID-19 PCR, the PCR is not detected for the fourth time. His CT angio of the chest showed no evidence of pulmonary embolism. He has bilateral ground glass and consolidative right lung infiltrate involving all 5 lobes and these may be due to pulmonary edema or infection including the possibility of atypical infection. Minimal bilateral pleural effusions are seen. ASSESSMENT: Multifocal pneumonia despite treatment with IV antibiotic. The patient has been tested for COVID-19 four times and they are all negative. The patient has multifocal pneumonia involving all 5 lobes with bilateral crepitation. No rhonchi. IMPRESSION: My impression is the patient has bronchiolitis obliterans and organizing pneumonia. His C-reactive protein was extremely high at 133. I did start him on steroids. He has multiple Episodes of nonsustained ventricular tachycardia for which we will consult the Cardiology tomorrow. If he remains stable, we will discharge him on oral tapering course of steroids and arrange for him to be followed by Dr. Guerra. MARYSOL FERNANDEZ MD DR: LENI/hansel JOB#: [id number] / [id number]
--- NOTE | 2019-10-23 18:29 | NUR ---
CONSULT FOR CARDIOLOGY HAS BEEN CALLED.
[2019-10-23 20:02] VITALS: BP 135/71
[2019-10-23] MEDS: TEMAZEPAM 15 MG CAPSULE PO PRN (21:04)
[2019-10-24 06:12] LABS: HEMATOCRIT 36.4 % (39.0-53.0); HEMOGLOBIN 12.4 g/dL (13.0-17.5); RED BLOOD COUNT 3.84 x10^6/uL (4.30-5.70); RED CELL DISTRIBUTION WIDTH 13.1 % (11.5-14.5); WHITE BLOOD COUNT 14.8 x10^3/uL (4.0-11.0)
[2019-10-24] MEDS: methylPREDNISolone SOD SUCC PF 40 MG/ML VIAL. IV SCH ×2 (06:12→12:50)
[2019-10-24 06:14] VITALS: BP 128/72
[2019-10-24 06:47] LABS: ALBUMIN 2.8 g/dL (3.4-5.0); ALBUMIN/GLOBULIN RATIO 0.6 (1.0-1.7); CALCIUM 8.7 mg/dL (8.5-10.1); GFR 71.9; MAGNESIUM 2.1 mg/dL (1.8-2.4); TOTAL BILIRUBIN 0.2 mg/dL (0.2-1.0); TOTAL PROTEIN 7.4 g/dL (6.4-8.2)
--- NOTE | 2019-10-24 07:04 | NUR ---
Pt awoke in good spirits, wishing to shower. Pt amb independently to shower, bathed self. Upon return to room, pt brushed teeth and combed his hair by the sink. Pt reports respiratory status is much improved, denies any current SOA with exertion. Sats 94% on RA this AM. Pt reports his pacemaker was placed by Dr. Uribe in July and he had an office appt scheduled this month to have the pacemaker interrogated. Notified oncoming RNAntionette.
[2019-10-24] MEDS: LACTOBACILLUS RHAMNOSUS GG 1 CAPSULE. PO SCH (07:57)
[2019-10-24] MEDS: DOCUSATE SODIUM 100 MG CAPSULE PO SCH (07:57)
[2019-10-24] MEDS: DOXYCYCLINE HYCLATE 100 MG TABLET PO SCH (07:57)
[2019-10-24] MEDS: METOPROLOL SUCC 24HR ER 25 MG TAB.ER.24H. PO SCH (07:57)
--- NOTE | 2019-10-24 10:34 | NUR ---
PT IS NICE AND PLEASANT, RESTING COMFORTABLY IN A BED DURING ASSESSMENT, PT IS ON RA 95%, PT STATED HE FEELS A LOT BETTER, TOOK A SHOWER EARLIER, DOES NOT EXPERIENCE SOB DURING AMBULATION OR ADLS, STATED HE IS READY TO BE DISCHARGED TO GO HOME. VS ARE STABLE, WILL CONTINUE TO MONITOR.
[2019-10-24 12:58] VITALS: BP 119/72
[2019-10-24 15:19] VITALS: BP 118/62
[2019-10-24] MEDS ORDERED: TEMA30CA PO (18:34)
--- NOTE | 2019-10-24 18:53 | NUR ---
PATIENT IS DISCHARGED TO HOME, VS ARE STABLE, DISCHARGED INSTRUCTIONS GIVEN TO THE PATIENT, PT VERBALIZED UNDERSTANDING. PT LEFT ROOM 125 VIA AMBULATION ACCOMPANIED BY STAFF. PT IS TAKEN HOME BY HIS VIA PERSONAL VEHICLE.
--- NOTE | 2019-10-24 23:05 | DS ---
DATE OF DISCHARGE: 10/24/2019 HOSPITAL COURSE: The patient is an 79-year-old male patient who was admitted on 10/20/2019 with shortness of breath. The patient has been sick for over a month and has had a pacemaker for a third-degree AV block in July of this year. Two weeks ago, he was diagnosed with community-acquired pneumonia. He was evaluated, treated with a 10-day course of Rocephin and Zithromax. He was tested for COVID-19 three times, all of them were negative and had had a CT scan of the chest, which showed ground glass appearance and opacities in all five lobes. There is no pulmonary embolus. He had a typical patchy pneumonitis consistent with typical pneumonia. He was admitted for further treatment and evaluation. His COVID test was again negative and given the extent of the involvement, I consulted Dr. Guerra regarding the possibility of bronchitis obliterans and organizing pneumonia, and he recommended to check his C-reactive protein and if it is high, to start him on steroids and to make an appointment for him to be seen at his office. In fact, his C-reactive protein was 133 mg per liter and we did start him on Solu-Medrol 60 mg IV every 8 hours. He did actually very well, has had no more cough or shortness of breath, has been up and about, and a decision was made to discharge him on a tapering course of steroids. He will have a chest x-ray on Sunday. He was also seen by Cardiology for a recurrent episode of what seemed to be SVT/nonsustained ventricular tachycardia. Dr. Uribe recommended the patient can be discharged to follow as an outpatient in his office to make adjustment to his pacemaker. PHYSICAL EXAMINATION: GENERAL: When I saw him this afternoon, he looked well and was clearly in no apparent respiratory distress. No pallor, jaundice, cyanosis or thyromegaly. No jugular venous distention. No limb edema. VITAL SIGNS: His heart rate was 73, blood pressure 118/62, temperature was 98, respiratory rate was 16, and oxygen saturation was 95% on room air. HEAD, EYES, EARS, NOSE AND THROAT: Showed normocephalic, atraumatic. NECK: Supple. HEART: Showed normal first and second heart sounds. No gallop or murmur. CHEST: Shows central trachea, equal bilateral expansion, air entry, vesicular sounds, very few bilateral basal crepitations posteriorly. I could not appreciate any rhonchi. ABDOMEN: Distended, soft, nontender. NEUROLOGIC: He is awake, alert, responding appropriately. All cranial nerves intact. EXTREMITIES: He moves extremities without difficulty. He ambulates without assistance or assistive devices. LABORATORY DATA: As of this morning showed a serum sodium 138, potassium 4, chloride 103, bicarbonate 22, anion gap of 13, BUN 21, creatinine 1, estimated GFR was 72 mL per minute, his glucose was 149, calcium was 8.7, magnesium 2.1. Total bilirubin, AST, ALT, alkaline phosphatase were normal. His total protein was 7.4, albumin was 2.8. C-reactive protein was 133 mg/dL. His white cell count this morning was 14,800, hemoglobin 12.4, hematocrit 36, MCV 95, and platelet count 393,000. His COVID-19 by PCR was again negative for the fourth time. His chest x-ray showed multifocal pulmonary opacities unchanged. ASSESSMENT: My diagnosis is bronchiolitis obliterans and organizing pneumonia. Other problems include benign prostatic hypertrophy, chronic back pain, has also had third-degree heart block for which he underwent permanent pacemaker placement and has had community-acquired pneumonia, treated about 2 weeks ago with IV antibiotic. MARYSOL FERNANDEZ MD DR: LENI/hansel JOB#: [id number] / [id number]
--- NOTE | 2019-10-28 15:57 | PDOC ---
PROVIDER NOTE PROVIDER NOTE PROVIDER NOTE Cardiology consultation note: Late entry for 10/24/2019 Reason for consultation arrhythmia History of present illness: Pleasant 79-year-old man admitted to the hospital in the setting of infection versus inflammatory pulmonary issues. Cardiology was asked to evaluate him due to some arrhythmias noted on telemetry. He is well-known to our service with past medical history as noted below. The patient denies any current chest pain, orthopnea, PND or lower extremity edema. No syncope or palpitations. Past medical history 1. Status post dual-chamber pacemaker for complete heart block 2. Prior orthopedic surgeries 3. Obesity Social history: No alcohol, tobacco or illicit drug use. Allergies to Cipro, levofloxacin morphine Review of systems negative for 10 out of 14 systems reviewed unless otherwise mentioned above in HPI. Medications reviewed. The patient appeared well nourished and normally developed. Head exam is unremarkable. No scleral icterus or corneal arcus noted. Neck is without jugular venous distension, thyromegaly, or carotid bruits. Carotid upstrokes are brisk bilaterally. Lungs are notable for bilateral rhonchi Cardiac exam reveals the PMI to be normally sized and situated. Rhythm is regular. First and second heart sounds normal. No murmurs, rubs or gallops. Abdominal exam reveals normal bowel sounds, no masses, no organomegaly and no aortic enlargement. Extremities are nonedematous and both femoral and pedal pulses are normal. Msk: No traumua Neuro: No focal deficits Diagnostic studies: Telemetry reviewed: He has SVT with aberrancy. No evidence of VT noted Echocardiogram prior to pacemaker implantation was unremarkable in 2019 Impression: 1. Arrhythmia: SVT with aberrancy likely in the setting of inflammatory pulmonary pathology. No obvious cardiac pathology noted he currently does not have any angina. EKG is otherwise unremarkable. Recommendations: 1. We will plan for routine in office device check in the near future. Supportive care for now. Okay to discharge from cardiac standpoint. Justification of Admission: Justification of Admission: Justification of Admission Dx: Yes CHF: Cardiac Arrhythmias TAMIKO CAROLINA MD Oct 28, 2019 15:57
[2020-01-29] MEDS ORDERED: ZOLP10TA PO (15:02)
== END 2019-10-24 18:50 | disposition home or self-care (01) | DRG 177 ==
LOC: ER 10:30 → 1 SOUTH 14:25
PROVIDERS: ADMIT Hospitalist; ATTEND Internal Medicine
DX: J15.6 Pneumonia due to other Gram-negative bacteria (principal); J96.00 Acute respiratory failure, unspecified whether with hypoxia or hypercapnia; I44.2 Atrioventricular block, complete; I47.2 Ventricular tachycardia; J15.9 Unspecified bacterial pneumonia; I45.9 Conduction disorder, unspecified; M19.90 Unspecified osteoarthritis, unspecified site; G89.29 Other chronic pain; J06.9 Acute upper respiratory infection, unspecified; I10 Essential (primary) hypertension; J84.89 Other specified interstitial pulmonary diseases; E83.42 Hypomagnesemia; N40.0 Benign prostatic hyperplasia without lower urinary tract symptoms; Z20.828 Contact with and (suspected) exposure to other viral communicable diseases; Z85.46 Personal history of malignant neoplasm of prostate; Z95.0 Presence of cardiac pacemaker; Z98.1 Arthrodesis status; Z88.5 Allergy status to narcotic agent; Z88.1 Allergy status to other antibiotic agents
CPT/HCPCS: 36415; 36600; 71045; 71275; 80048; 80053; 82803; 83605; 83735; 83880; 84484; 85025; 85027; 85610; 85730; 86140; 87040; 93005; 94640; 96361; 96365; 96368; J0456; J1940; J2920; J3370; J3475; J7040; J7050; 99285-25; J7030; U0003-CS

== ENCOUNTER 2019-12-06 08:12 | Emergency (ER) | payer MEDICARE, OTHER ==
[~2019-12-06] VITALS: Ht 172.7 cm; Wt 95.0 kg
[~2019-12-06 08:12] MED LIST changes: -0.9 % SODIUM CHLORIDE 10 ML VIAL ONE; +DOCU-109 PO; +DOXY-96 PO; -IOHEXOL 300 MG/ML 50 ML VIAL. ONE; -LIDOCAINE 1% PF 30 ML VIAL. ONE; +METO-239 PO; +TEMA30CA PO
[2019-12-06 08:17] VITALS: BP 140/61
[2019-12-06 09:08] LABS: BILIRUBIN,URINE NEG (NEG); CLARITY,URINE HAZY; COLOR,URINE YELLOW; GLUCOSE,URINE NEG (NEG)
[2019-12-06 09:09] LABS: BACTERIA,URINE 0 /HPF (0-FEW); NITRITE,URINE NEG (NEG); SQUAMOUS EPITHELIAL CELL,UR FEW /LPF; UROBILINOGEN,URINE 0.2 mg/dL (0.2 mg/dL); WBC,URINE 20-40 /HPF (0-4)
[2019-12-06] MEDS ORDERED: CEPHALEXIN 250 MG CAPSULE PO ONE (09:30)
[2019-12-06] MEDS ORDERED: PHENAZOPYRIDINE 200 MG TABLET. PO ONE (09:30)
[2019-12-06] MEDS ORDERED: CEPH-264 PO (09:32)
[2019-12-06] MEDS ORDERED: PHEN-318 PO (09:32)
--- NOTE | 2019-12-06 09:33 | PHYS DOC ---
Past History Past Medical History: Hypertension, Prostatitis Past Surgical History: Pacemaker, Other Additional Past Surgical Histo: prostate sx, back fusion sx Smoking: Non-smoker Alcohol Use: None Drug Use: None General Adult EDM: Chief Complaint: URINARY FREQUENCY HPI: HPI: 79-year-old male presents with 3-day history of dysuria and urinary frequency. Patient reports history of chronic prostatitis. Denies fever or chills. Denies trauma. Denies hematuria. Review of Systems: Review of Systems: Constitutional: Denies fever or chills Eyes: Denies redness or eye pain HENT: Denies nasal congestion or sore throat Respiratory: Denies cough or shortness of breath Cardiovascular: Denies chest pain or palpitations GI: Denies abdominal pain, nausea, or vomiting : Reports dysuria and urinary frequency Musculoskeletal: Denies back pain or joint pain Integument: Denies rash or skin lesions Neurologic: Denies headache, focal weakness or sensory changes Complete systems were reviewed and found to be within normal limits, except as documented in this note. Allergies: Allergies: Allergies Coded Allergies Type Severity Reaction Last Updated Verified ciprofloxacin Allergy Intermediate Unknown 07/17/17 Yes levofloxacin Allergy Intermediate Unknown 07/17/17 Yes morphine Allergy Intermediate Palpitations 07/17/17 Yes sulfamethoxazole Allergy Unknown 12/06/19 Yes trimethoprim Allergy Unknown 12/06/19 Yes Physical Exam: PE: Constitutional: Well developed, well nourished, no acute distress, non-toxic appearance HENT: Normocephalic, atraumatic Eyes: Conjunctiva normal, no discharge Neck: Normal range of motion, supple Lungs & Thorax: No respiratory distress, equal chest rise and fall Abdomen: Soft, no tenderness Skin: Warm, dry, no erythema, no rash Back: No tenderness, no CVA tenderness Extremities: No tenderness, ROM intact, no edema Neurologic: Alert and oriented X 3, no focal deficits noted Psychologic: Affect normal, judgment normal Current Patient Data: Labs: Laboratory Tests Test 12/06/19 08:18 Urine Collection Type Unknown Urine Color Yellow Urine Clarity Hazy Urine pH 7.0 Urine Specific Hungry Horse 1.020 Urine Protein Trace (NEG-TRACE) Urine Glucose (UA) Neg mg/dL (NEG) Urine Ketones (Stick) Neg mg/dL (NEG) Urine Blood Trace (NEG) Urine Nitrite Neg (NEG) Urine Bilirubin Neg (NEG) Urine Urobilinogen Dipstick 0.2 mg/dL (0.2 mg/dL) Urine Leukocyte Esterase Small (NEG) Urine RBC 3-5 /HPF (0-2) Urine WBC 20-40 /HPF (0-4) Urine Squamous Epithelial Cells Few /LPF Urine Transitional Epithelial Cells Few /LPF Urine Bacteria 0 /HPF (0-FEW) Urine Mucus Mod /LPF EKG: EKG: [] Radiology/Procedures: Radiology/Procedures: [] Course & Med Decision Making: Course & Med Decision Making Pertinent Lab studies reviewed. (See chart for details) Patient presents with HPI and physical exam concerning for UTI. Patient has history of chronic prostatitis. Afebrile. UA with signs of infection. Symptomatic treatment provided with Pyridium. Empiric antibiotic initiated with Keflex. Patient stable for discharge with outpatient follow-up with PCP. Discussed findings and plan with patient, who acknowledges understanding and agreement. Cathleen Disclaimer: Cathleen Disclaimer: This electronic medical record was generated, in whole or in part, using a voice recognition dictation system. Departure Departure: Impression: Primary Impression: Urinary tract infection Qualified Codes: N30.01 - Acute cystitis with hematuria Disposition: HOME/RESIDENCE PRIOR TO ADM Condition: STABLE Referrals: EVAN DUBOIS MD (PCP) Patient Instructions: Urinary Tract Infection, [id number] Scripts Phenazopyridine Hcl (PYRIDIUM) 200 Mg Tablet 200 MG PO TID for urinary tract infection for 2 Days, #6 TAB Prov: BHUPENDRA ESTRELLA DO 12/06/19 Cephalexin (KEFLEX) 500 Mg Capsule 1 CAP PO TID for UTI for 7 Days, #21 CAP 0 Refills Prov: BHUPENDRA ESTRELLA DO 12/06/19 Justification of Admission: Justification of Admission: Justification of Admission Dx: N/A BHUPENDRA ESTRELLA DO Dec 06, 2019 09:33
== END 2019-12-06 09:37 | disposition home or self-care (01) ==
LOC: ER 08:12
DX: N30.01 Acute cystitis with hematuria (principal); I10 Essential (primary) hypertension; Z95.0 Presence of cardiac pacemaker; Z88.1 Allergy status to other antibiotic agents; Z88.5 Allergy status to narcotic agent; Z88.2 Allergy status to sulfonamides
CPT/HCPCS: 81001; 87086; 99283

== ENCOUNTER → 2020-02-03 | Outpatient (CLI) | payer MEDICARE, OTHER ==
[~2020-02-03] MED LIST changes: +CEPH-264 PO; +PHEN-318 PO; +ZOLP10TA PO
== END | disposition home or self-care (01) ==
LOC: LAB 13:20
PROVIDERS: ATTEND Registered Nurse
DX: Z01.812 Encounter for preprocedural laboratory examination (principal); Z20.828 Contact with and (suspected) exposure to other viral communicable diseases
CPT/HCPCS: U0003-CS

== ENCOUNTER → 2020-02-06 | Day surgery (SDC) | payer MEDICARE, OTHER ==
[~2020-02-06] MED LIST changes: +IPRATRPIUM/ALBUTEROL 0.5/2.5MG 3 ML NEBU. NEB PRN; +IV RINGERS SOLUTION,LACTATED 1,000 ML IV SCH; +LIDOCAINE 2% PF 5 ML VIAL. ONE; +MIDAZOLAM HCL PF 2 MG/2 ML VIAL. IV ONE; +ONDANSETRON PF 4 MG/2 ML VIAL. IV PRN; +PROPOFOL 10,000 MCG/ML (20ML) VIAL IV ONE
[2020-02-06 11:58] VITALS: BP 120/78
--- NOTE | 2020-02-09 19:07 | PATHOLOGY ---
[facility] Accession Number: [id number] . 01 Material submitted: . PART A: colon - SIGMOID POLYP. Modifiers: sigmoid PART B: colon - ASCENDING COLON POLYP. Modifiers: ascending . 02 Diagnosis: A. Colon biopsy, sigmoid polyp: - Tubular adenoma. . B. Colon biopsies, ascending colon polyps: - Tubular adenomas. [facility] 02/09/2020 1549 Local . 02 Comment: There is no high grade dysplasia or evidence of malignancy. (JPM/db; 02/09/2020) . 02 Electronically signed: . Peter Roger MD, Pathologist NPI- [id number] . 01 Gross description: . A. Received in formalin labeled "Stalnaker, Edon, sigmoid polyp" is a fragment of painting-brown soft tissue measuring 0.4 x 0.3 x 0.2 cm. The specimen is submitted entirely in A1. . B. Received in formalin labeled "Stalnaker, Deon, ascending colon polyp x2" are multiple painting-brown soft tissue fragments measuring in aggregate 0.9 x 0.4 x 0.1 cm. The specimen is submitted entirely in B1. [place] [place] [facility] 02/08/2020 1231 Local . 02 Pathologist provided ICD-10: D12.5, D12.2 . 02 CPT . 393118, 133598 Specimen Comment: A courtesy copy of this report has been sent to [phone], [phone] Specimen Comment: [phone] Specimen Comment: Report sent to / DR DUBOIS Performed at: [address], [place], [place] [id number] MD Vivek Lehman MD Phone: [phone] Performed at: [address] [id number] MD Peter Roger MD Phone: [phone]
== END | disposition home or self-care (01) ==
LOC: SURG 09:24
PROVIDERS: ATTEND Internal Medicine Gastroenterology
DX: K92.1 Melena (principal); D12.5 Benign neoplasm of sigmoid colon; D12.2 Benign neoplasm of ascending colon; I10 Essential (primary) hypertension; Z79.899 Other long term (current) drug therapy; Z88.8 Allergy status to other drugs, medicaments and biological substances
CPT/HCPCS: 45380; 45385; J2001; J2704; J7120; 88305

== ENCOUNTER 2021-07-26 03:57 | Emergency (ER) | payer MEDICARE, OTHER ==
[~2021-07-26] VITALS: Ht 172.7 cm; Wt 90.0 kg
[~2021-07-26 03:57] MED LIST changes: -IPRATRPIUM/ALBUTEROL 0.5/2.5MG 3 ML NEBU. NEB PRN; -IV RINGERS SOLUTION,LACTATED 1,000 ML IV SCH; -LIDOCAINE 2% PF 5 ML VIAL. ONE; -MIDAZOLAM HCL PF 2 MG/2 ML VIAL. IV ONE; -ONDANSETRON PF 4 MG/2 ML VIAL. IV PRN; -PROPOFOL 10,000 MCG/ML (20ML) VIAL IV ONE
--- NOTE | 2021-07-26 04:00 | PHYS DOC ---
Past History Past Medical History: Arthritis, Bronchitis, Hypertension, Pneumonia, Prostatitis, Sciatica Additional Past Medical Histor: Chronic Prostate infections Past Surgical History: Lumbar Laminectomy, Pacemaker, Other Additional Past Surgical Histo: prostate sx, back fusion sx Smoking: Non-smoker Alcohol Use: None Drug Use: None General Adult HPI: HPI: ".. I got this leg pain.. back... It just like the sciatica .. I had before.. but now it is on the Lt side..".. " The weather change has made it really bad.. could not sleep this morning.. it is in my lower back down my the place I had surgery.. runs into my butt..then down into my Lt. leg... just like before.. on my Rt side.. but the did surgery ..and fixed it...but.. now I got on my Lt side..." Patient is a 81 year old male who presents with above hx and complaints sciatica-like complaints in lower back and left leg. Patient states pain is just like previous episode of sciatica in his right leg but now it is in his left leg. Patient reports that he had lumbar sacral surgery to ' fix" the severe sciatica he had in his right leg. Patient denies any trauma. Patient denies any fever or chills. Patient denies any problems with defecation or urination. Patient has had some chronic arthritic problems that are exacerbated by weather changes. 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 Patient tonight is using a cane to aid with his walking. Patient in the past has followed with Dr. Dubois. Review of Systems: Review of Systems: Constitutional: Denies fever or chills Eyes: Denies change in visual acuity HENT: Denies nasal congestion or sore throat Respiratory: Denies cough or shortness of breath Cardiovascular: Denies chest pain or edema GI: Denies abdominal pain, nausea, vomiting, bloody stools or diarrhea : Denies dysuria Musculoskeletal: Complains of left lower back pain and sciatica Integument: Denies rash Neurologic: Denies headache, focal weakness or sensory changes Endocrine: Denies polyuria or polydipsia Lymphatic: Denies swollen glands Psychiatric: Denies depression or anxiety Family History: Family History: Noncontributory the presentation Current Medications: Current Meds: See nursing for home meds Allergies: Allergies: Allergies Coded Allergies Type Severity Reaction Last Updated Verified ciprofloxacin Allergy Intermediate Unknown 07/17/17 Yes levofloxacin Allergy Intermediate Unknown 07/17/17 Yes morphine Allergy Intermediate Palpitations 07/17/17 Yes sulfamethoxazole Allergy Unknown 12/06/19 Yes trimethoprim Allergy Unknown 12/06/19 Yes Physical Exam: PE: Constitutional: Moderate acute distress, non-toxic appearance. [] HENT: Normocephalic, atraumatic, bilateral external ears normal, oropharynx moist, no oral exudates, nose normal. [] Eyes: PERRLA, EOMI, conjunctiva normal, no discharge. [] Neck: Normal range of motion, no tenderness, supple, no stridor. [] Cardiovascular:Heart rate regular rhythm, no murmur []. PMI to the left. Bedside monitor shows a paced rhythm Lungs & Thorax: Bilateral breath sounds equal apex on auscultation [. Pacer] Abdomen: Bowel sounds normal, soft, no tenderness, no masses, no pulsatile masses. [] Skin: Warm, dry, no erythema, no rash. Poor turgor Back: No tenderness, no CVA tenderness. [] Old lumbar sacral surgery scar. Pain along left sciatic root into his left hip Extremities: Left sciatic nerve tenderness, no cyanosis, no clubbing, ROM intact, no edema. Arthritic changes. Neurologic: Alert and oriented X 3, moves all extremities on request, has distal sensory, DTRs are +2 patella and brachial. Increased sciatic pain on straight leg lift on the left. Patient ambulates with aid of a cane., Patient reports, no new focal deficits noted. [] Psychologic: Affect anxious, judgement normal, mood normal. [] EKG: EKG: [] Radiology/Procedures: Radiology/Procedures: [][address] [address] IMAGING REPORT Signed PATIENT: ZARINA OLIVARESOUNT: [id number] : 1940 LOCATION: ER AGE: 81 SEX: M EXAM STATUS: REG ER ORD. PHYSICIAN: ZACH CAPUTO MD REASON: pain. severe sciatica complaints- hx PROCEDURE: CT LUMBAR SPINE WO CONTRAST EXAMINATION: CT lumbar spine without IV contrast. INDICATION:81 years, Male, severe sciatica pain. TECHNIQUE: Axial CT images of the lumbar spine was obtained. Coronal and sagittal reformatted performed. COMPARISON: None. Exposure: One or more of the following individualized dose reduction techniques were utilized for this examination: 1. Automated exposure control 2. Adjustment of the mA and/or kV according to patient size 3. Use of iterative reconstruction technique. FINDINGS: The vertebral bodies are normal in height. Minimal retrolisthesis of L2 over L3. Grade 1 anterolisthesis of L4 over L5. No acute fracture. Diffuse osteopenia. Posterior hardware instrumentation at L4-5 and L5-S1 without hardware failure or loosening. Disc spacer at L4-5. Laminectomy changes. Severe multilevel degenerative changes with disc space narrowing, endplate sclerosis/erosion and osteophytes. Multilevel vacuum disc phenomena. Severe multilevel bilateral facet arthropathy. Severe canal stenosis at L2-3. Moderate to severe bilateral neuroforaminal narrowing throughout the lumbar spine. Posterior lumbar soft tissue edema. Visualized abdominal structures are unremarkable. IMPRESSION: 1. No acute osseous abnormality. 2. Posterior hardware instrumentation at L4-5 and L5-S1 without hardware failure or loosening. 3. Severe multilevel degenerative changes with severe canal stenosis at L2-3. Moderate to severe bilateral neuroforaminal narrowing throughout the lumbar spine. Electronically signed by: Sean Jean MD (07/26/2021 5:20 AM) [facility] DICTATED AND SIGNED BY: SEAN JEAN MD DATE: 07/26/21 0514 CC: EVAN DUBOIS MD; ZACH CAPUTO MD ~MTH0 0 Heart Score: C/O Chest Pain: N/A Risk Factors: Risk Factors: DM, Current or recent (<one month) smoker, HTN, HLP, family history of CAD, obesity. Risk Scores: Score 0 - 3: 2.5% MACE over next 6 weeks - Discharge Home Score 4 - 6: 20.3% MACE over next 6 weeks - Admit for Clinical Observation Score 7 - 10: 72.7% MACE over next 6 weeks - Early Invasive Strategies Course & Med Decision Making: Course & Med Decision Making Pertinent Labs and Imaging studies reviewed. (See chart for details) Patient take Tylenol and ibuprofen for discomfort. Patient to follow-up with primary care. Patient consider use of lidocaine pain patches over sciatic nerve. If marked pain consider physical therapy and refer to neurosurgery may need additional laminectomy if pain is incapacitating or increased symptoms. For marked pain may take Vicoprofen up to 4 times a day. Patient warned of possible constipation with this narcotic. Patient also may use Flexeril 10 mg up to 3 times a day for muscle spasms. Return if any concerns. Impression: 1. Sciatica left sided 2. DJD and spinal stenosis [] Dragon Disclaimer: Dragon Disclaimer: This electronic medical record was generated, in whole or in part, using a voice recognition dictation system. Departure Departure: Referrals: EVAN DUBOIS MD (PCP) Scripts Hydrocodone/Ibuprofen (HYDROCODONE-IBUPROFEN 7.5-200 ) 1 Each Tablet 1 TAB PO PRN Q6HRS PRN for PAIN, #30 TAB 0 Refills Prov: ZACH CAPUTO MD 07/26/21 Cyclobenzaprine Hcl (CYCLOBENZAPRINE HCL) 5 Mg Tablet 5 MG PO tidprn for sciatic/spasms, #30 TAB Prov: ZACH CAPUTO MD 07/26/21 Lidocaine (Lidocaine PATCH ) 1 Each Adh..patch 1 EACH TP DAILY for FOR LOCAL PAIN for 10 Days, #10 PATCH REMOVE AFTER 12 HOURS Prov: ZACH CAPUTO MD 07/26/21 Dragon Disclaimer This chart was dictated in whole or in part using Voice Recognition software in a busy, high-work load, and often noisy Emergency Department environment. It may contain unintended and wholly unrecognized errors or omissions. ZACH CAPUTO MD Jul 26, 2021 04:00
[2021-07-26] MEDS ORDERED: KETOROLAC 30 MG/ML VIAL. IM ONE (04:15)
[2021-07-26] MEDS ORDERED: CYCL5TAB PO (04:22)
[2021-07-26] MEDS ORDERED: LIDO700A21 TP (04:22)
[2021-07-26] MEDS ORDERED: HYDR-1179 PO (04:22)
[2021-07-26] MEDS ORDERED: methylPREDNISolone ACETATE 40 MG/ML VIAL. IM ONE (04:30)
--- NOTE | 2021-07-26 05:22 | RAD ---
EXAMINATION: CT lumbar spine without IV contrast. INDICATION:81 years, Male, severe sciatica pain. TECHNIQUE: Axial CT images of the lumbar spine was obtained. Coronal and sagittal reformatted perform ed. COMPARISON: None. Exposure: One or more of the following individualized dose reduction techniques were utilized for thi s examination: 1. Automated exposure control 2. Adjustment of the mA and/or kV according to patient size 3. Use of iterative reconstruction technique. FINDINGS: The vertebral bodies are normal in height. Minimal retrolisthesis of L2 over L3. Grade 1 anterolisthe sis of L4 over L5. No acute fracture. Diffuse osteopenia. Posterior hardware instrumentation at L4-5 and L5-S1 without hardware failure or loosening. Disc spacer at L4-5. Laminectomy changes. Severe mul tilevel degenerative changes with disc space narrowing, endplate sclerosis/erosion and osteophytes. M ultilevel vacuum disc phenomena. Severe multilevel bilateral facet arthropathy. Severe canal stenosis at L2-3. Moderate to severe bilateral neuroforaminal narrowing throughout the lumbar spine. Posterio r lumbar soft tissue edema. Visualized abdominal structures are unremarkable. IMPRESSION: 1. No acute osseous abnormality. 2. Posterior hardware instrumentation at L4-5 and L5-S1 without hardware failure or loosening. 3. Severe multilevel degenerative changes with severe canal stenosis at L2-3. Moderate to severe monisha ateral neuroforaminal narrowing throughout the lumbar spine. Electronically signed by: Vadim Jean MD (07/26/2021 5:20 AM) [facility]
[2021-07-26 06:00] VITALS: BP 151/90
== END 2021-07-26 06:00 | disposition home or self-care (01) ==
LOC: ER 03:57
DX: M54.42 Lumbago with sciatica, left side (principal); M48.07 Spinal stenosis, lumbosacral region; M19.90 Unspecified osteoarthritis, unspecified site; I10 Essential (primary) hypertension; Z95.0 Presence of cardiac pacemaker; Z98.890 Other specified postprocedural states; Z88.1 Allergy status to other antibiotic agents; Z88.5 Allergy status to narcotic agent; Z88.2 Allergy status to sulfonamides
CPT/HCPCS: 72131; 96372; 99284; J1030; J1885